=== PATIENT | male | born 1960 | race Caucasian/White ===

== ENCOUNTER 2021-06-17 12:25 | Emergency (ER) | payer OTHER ==
[2021-06-17 12:45] VITALS: BP 112/79; PULSE 78; TEMP 97.9; BMI 21.4
== END 2021-06-17 13:47 | disposition home or self-care (01) ==
LOC: FER 12:25
DX: M79.674 Pain in right toe(s) (principal)
CPT/HCPCS: 73630-TC-RT-FY; 99283-25